=== PATIENT | female | born 1965 | race Caucasian/White ===

== ENCOUNTER 2025-07-06 14:42 | Emergency (ER) | payer BC ==
[2025-07-06] MEDS ORDERED: Orphenadrine Citrate 60 MG/2 ML VIAL ONE (16:18)
[2025-07-06] MEDS ORDERED: Ketorolac Tromethamine 30 MG (1 mL) VIAL ONE (16:18)
== END 2025-07-06 17:18 | disposition home or self-care (01) ==
LOC: ERS 14:42
DX: S16.1XXA Strain of muscle, fascia and tendon at neck level, initial encounter (principal); I10 Essential (primary) hypertension; Z79.899 Other long term (current) drug therapy; X58.XXXA Exposure to other specified factors, initial encounter
CPT/HCPCS: 96372; 99283; J1885; J2360

== ENCOUNTER 2025-07-07 11:14 | Outpatient (CLI) | payer BC | END 2025-07-07 11:15 | disposition home or self-care (01) | LOC: SCSMRI 11:14 | PROVIDERS: ATTEND Nurse Practitioner Family | DX: M54.12 Radiculopathy, cervical region (principal); M48.02 Spinal stenosis, cervical region | CPT/HCPCS: 72141 ==